=== PATIENT | female | born 1965 | race Caucasian/White ===

== ENCOUNTER 2025-02-16 05:46 | Outpatient (REF) | payer MEDICARE, SELFPAY ==
[2025-02-16 06:22] LABS: Alanine Aminotransferase 27 U/L (0-31); Albumin Level 1.4 g/dL (3.5-5.0); Alkaline Phosphatase 280 U/L (39-117); Anion Gap 11 (12-20); Aspartate Amino Transferase 83 U/L (5-31); Blood Urea Nitrogen 14 mg/dL (9-16); Calcium 7.2 mg/dL (8.4-10.2); Carbon Dioxide 25 mmol/L (22-29); Chloride 105 mmol/L (96-108); Estimated Glomerular Filt Rate 57; Potassium 3.2 mmol/L (3.3-5.1); Sodium 138 mmol/L (135-145); Total Protein 5.3 g/dL (6.5-8.0)
== END 2025-02-16 05:47 | disposition home or self-care (01) ==
LOC: HO.MMNH1L 05:46
PROVIDERS: Visit Provider Student in an Organized Health Care Education/Training Program
DX: Z13.89 Encounter for screening for other disorder (principal)
CPT/HCPCS: 36415; 80053